=== PATIENT | male | born 2000 | race Two or more races ===

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

== ENCOUNTER 2020-05-23 12:04 | Emergency (ER) | payer OTHER ==
[~2020-05-23] VITALS: Ht 149.9 cm; Wt 59.0 kg
[2020-05-23 13:47] VITALS: BP 140/68
== END 2020-05-23 14:21 | disposition home or self-care (01) ==
LOC: ER 12:04 → EDBD 12:04 → ER 14:21
DX: R07.81 Pleurodynia (principal); Y99.0 Civilian activity done for income or pay
CPT/HCPCS: 71101